=== PATIENT | female | born 1930 | race Caucasian/White ===

== ENCOUNTER 2019-06-03 18:35 | Inpatient (IN) | payer MEDICARE, BC ==
[~2019-06-03] VITALS: Ht 160 cm; Wt 59.9 kg
[~2019-06-03 18:35] MED LIST: ACET325T47 PO; APIX2.5T PO; FAMO20 PO; ISOS30TA6 PO; METO25XL PO; ZOLP10TA7 PO
[2019-06-03] MEDS ORDERED: SODIUM CHLORIDE 0.9% 250 ML IV ONE (18:45)
[2019-06-03 20:25] LABS: MEAN CORPUSCULAR HEMOGLOBIN 29.7 pg (26.0-34.0); MEAN CORPUSCULAR HGB CONC 32.5 G/dL (31.0-37.0); MEAN CORPUSCULAR VOLUME 91 fL (80-100); RED BLOOD CELL COUNT(AUTO) 6.43 MIL/uL (4.00-5.20); RED CELL DISTRIBUTION WIDTH 15.5 % (11.5-14.5)
[2019-06-03 20:27] LABS: CALCIUM, TOTAL 10.4 mg/dL (8.8-10.5); CREATININE 1.52 mg/dL (0.60-1.30); POTASSIUM 5.3 mmol/L (3.5-5.1)
[2019-06-03 20:31] LABS: HEMATOCRIT 58.6 % (36-46); HEMOGLOBIN 19.1 g/dL (12.0-16.0)
[2019-06-03 20:33] LABS: ALBUMIN 4.2 g/dL (3.4-5.0); BILIRUBIN,TOTAL 1.3 mg/dL (0.1-1.0); MAGNESIUM 1.4 mg/dL (1.80-2.40); TOTAL PROTEIN, SERUM 8.1 g/dL (6.4-8.2)
[2019-06-03 20:35] LABS: LACTIC ACID 1.1 mmol/L (0.4-2.0)
[2019-06-03] MEDS ORDERED: SODIUM CHLORIDE 0.9% 1,000 ML IV ONE ×2 (20:45→21:45)
[2019-06-03 20:47] LABS: TROPONIN I < 0.02 ng/mL (0.00-0.05)
[2019-06-03 20:48] LABS: AMMONIA 13 umol/L (11-32)
[2019-06-03 20:50] LABS: INFLUENZA TYPE A NEGATIVE FOR TYPE A (NEGATIVE); INFLUENZA TYPE B NEGATIVE FOR TYPE B (NEGATIVE)
[2019-06-03 20:59] LABS: PLATELET COUNT (AUTO) 402 K/uL (150-450); PLATELET MORPHOLOGY COMMENT GIANT PLTS PRESENT
[2019-06-03 21:00] LABS: BAND NEUTROPHILS % (MANUAL) 0 % (0-5)
[2019-06-03 21:01] LABS: BASOPHILS % (MANUAL) 1 % (0-2); EOSINOPHILS % (MANUAL) 1 % (1-6); LYMPHOCYTES % (MANUAL) 16 % (22-44); MONOCYTES % (MANUAL) 20 % (2-9); REACTIVE LYMPHOCYTES 3 % (0-0); SEGMENTED NEUTROPHILS % 59 % (40-70)
[2019-06-03] MEDS ORDERED: MAGNESIUM SULFATE 2 GM/WATER 50 ML IV ONE (21:15)
[2019-06-03] MEDS ORDERED: ACETAMINOPHEN 325 MG TABLET PO PRN (21:45)
[2019-06-03 21:52] LABS: APPEARANCE,URINE CLOUDY (CLEAR); BILIRUBIN,URINE NEGATIVE (NEGATIVE); GLUCOSE, URINE (UA) NEGATIVE (NEGATIVE); KETONES,URINE NEGATIVE (NEGATIVE); LEUKOCYTE ESTERASE ,URINE LARGE (NEGATIVE); NITRATE,URINE POSITIVE (NEGATIVE); OCCULT BLOOD,URINE TRACE (NEGATIVE); PROTEIN,URINE TRACE (NEGATIVE)
[2019-06-03 22:04] LABS: BACTERIA,URINE Many /HPF (None Seen); RBC,URINE 0-2 /HPF (0-2); WBC,URINE 51-100 /HPF (0-5)
[2019-06-03] MEDS: CefTRIAXone 1 GM/DEXTROSE 50 ML IV SCH (23:16)
[2019-06-03] MEDS: AZITHROMYCIN 500 MG/NS 250 ML IV SCH (23:43)
[2019-06-04 04:51] VITALS: BP 117/70
[2019-06-04 09:00] VITALS: BP 110/68
[2019-06-04] MEDS: APIXABAN 2.5 MG TABLET PO SCH ×2 (09:21→21:21)
[2019-06-04] MEDS: DOCUSATE SODIUM 100 MG CAPSULE PO SCH ×2 (09:21→21:21)
[2019-06-04] MEDS: ATORVASTATIN CALCIUM 20 MG TABLET PO SCH (09:22)
[2019-06-04 12:00] VITALS: BP 130/64
[2019-06-04 16:00] VITALS: BP 124/68
[2019-06-04] MEDS: CefTRIAXone 1 GM/DEXTROSE 50 ML IV SCH (21:21)
[2019-06-04 21:35] VITALS: BP 109/73
[2019-06-04] MEDS: AZITHROMYCIN 500 MG/NS 250 ML IV SCH (23:13)
[2019-06-04] MEDS ORDERED: MAGNESIUM OXIDE 400 MG TABLET PO ONE (23:15)
[2019-06-04 23:26] VITALS: BP 118/64
[2019-06-05 05:42] VITALS: BP 144/81
[2019-06-05 08:00] VITALS: BP 130/71
[2019-06-05] MEDS: DOCUSATE SODIUM 100 MG CAPSULE PO SCH ×2 (10:03→20:56)
[2019-06-05] MEDS: APIXABAN 2.5 MG TABLET PO SCH ×2 (10:04→20:55)
[2019-06-05] MEDS: ATORVASTATIN CALCIUM 20 MG TABLET PO SCH (10:05)
[2019-06-05] MEDS ORDERED: SODIUM CHLORIDE 0.9% 1,000 ML ONE (10:16)
[2019-06-05 12:00] VITALS: BP 140/80
[2019-06-05 12:13] LABS: HEMATOCRIT 53.9 % (36-46); MEAN CORPUSCULAR HGB CONC 31.6 G/dL (31.0-37.0); MEAN CORPUSCULAR VOLUME 92 fL (80-100); PLATELET COUNT (AUTO) 341 K/uL (150-450); RED BLOOD CELL COUNT(AUTO) 5.87 MIL/uL (4.00-5.20); RED CELL DISTRIBUTION WIDTH 15.2 % (11.5-14.5)
[2019-06-05 12:28] LABS: CALCIUM, TOTAL 8.9 mg/dL (8.8-10.5); CREATININE 1.54 mg/dL (0.60-1.30); MAGNESIUM 1.3 mg/dL (1.80-2.40); POTASSIUM 4.9 mmol/L (3.5-5.1)
[2019-06-05 13:18] LABS: BAND NEUTROPHILS % (MANUAL) 1 % (0-5); EOSINOPHILS % (MANUAL) 1 % (1-6); LYMPHOCYTES % (MANUAL) 26 % (22-44); MONOCYTES % (MANUAL) 16 % (2-9); SEGMENTED NEUTROPHILS % 56 % (40-70)
[2019-06-05] MEDS ORDERED: MAGNESIUM OXIDE 400 MG TABLET PO PRN (13:30)
[2019-06-05] MEDS ORDERED: MAGNESIUM SULFATE 4 GM/WATER 100 ML IV PRN (13:30)
[2019-06-05] MEDS ORDERED: MAGNESIUM SULFATE 2 GM/WATER 50 ML IV PRN (13:30)
[2019-06-05 13:50] LABS: ALBUMIN 3.4 g/dL (3.4-5.0)
[2019-06-05 16:00] VITALS: BP 128/68
[2019-06-05 20:00] VITALS: BP 137/77
[2019-06-05] MEDS: CefTRIAXone 1 GM/DEXTROSE 50 ML IV SCH (22:00)
[2019-06-05] MEDS: AZITHROMYCIN 500 MG/NS 250 ML IV SCH (23:32)
[2019-06-06 00:44] VITALS: BP 125/73
[2019-06-06 04:01] VITALS: BP 133/76
[2019-06-06 07:28] VITALS: BP 116/71
[2019-06-06] MEDS: ATORVASTATIN CALCIUM 20 MG TABLET PO SCH (09:05)
[2019-06-06] MEDS: DOCUSATE SODIUM 100 MG CAPSULE PO SCH ×2 (09:05→20:31)
[2019-06-06] MEDS: APIXABAN 2.5 MG TABLET PO SCH ×2 (09:05→20:31)
[2019-06-06 11:42] VITALS: BP 122/74
[2019-06-06 15:22] VITALS: BP 128/66
[2019-06-06 21:30] VITALS: BP 143/68
[2019-06-06] MEDS: CefTRIAXone 1 GM/DEXTROSE 50 ML IV SCH (21:57)
[2019-06-06] MEDS: AZITHROMYCIN 500 MG/NS 250 ML IV SCH (23:03)
[2019-06-07 01:13] VITALS: BP 121/66
[2019-06-07 05:26] VITALS: BP 131/63
[2019-06-07 07:48] VITALS: BP 128/66
[2019-06-07] MEDS: APIXABAN 2.5 MG TABLET PO SCH ×2 (08:50→21:16)
[2019-06-07] MEDS: DOCUSATE SODIUM 100 MG CAPSULE PO SCH ×2 (08:50→21:16)
[2019-06-07] MEDS: ATORVASTATIN CALCIUM 20 MG TABLET PO SCH (08:50)
[2019-06-07 11:09] VITALS: BP 112/64
[2019-06-07 18:10] VITALS: BP 155/70
[2019-06-07 19:45] VITALS: BP 141/74
[2019-06-07] MEDS: CefTRIAXone 1 GM/DEXTROSE 50 ML IV SCH (22:51)
[2019-06-07] MEDS ORDERED: SODIUM CHLORIDE 0.9% 500 ML IV ONE (22:59)
[2019-06-08 00:59] VITALS: BP 126/55
[2019-06-08 08:02] VITALS: BP 140/82
[2019-06-08] MEDS: DOCUSATE SODIUM 100 MG CAPSULE PO SCH ×2 (09:13→20:44)
[2019-06-08] MEDS: APIXABAN 2.5 MG TABLET PO SCH ×2 (09:13→20:44)
[2019-06-08] MEDS: ATORVASTATIN CALCIUM 20 MG TABLET PO SCH (09:14)
[2019-06-08 10:38] LABS: BASOPHILS % (AUTO) 1.1 % (0.0-2.0); EOSINOPHILS % (AUTO) 1.7 % (1.0-6.0); HEMOGLOBIN 16.8 g/dL (12.0-16.0); LYMPHOCYTES # (AUTO) 2.8 K/uL (1.0-4.8); LYMPHOCYTES % (AUTO) 20.2 % (22.0-44.0); MEAN CORPUSCULAR HEMOGLOBIN 29.7 pg (26.0-34.0); MEAN CORPUSCULAR HGB CONC 32.3 G/dL (31.0-37.0); MEAN CORPUSCULAR VOLUME 92 fL (80-100); MONOCYTES # (AUTO) 3.6 K/uL (0.1-1.0); MONOCYTES % (AUTO) 25.6 % (2.0-9.0); NEUTROPHILS # (AUTO) 7.2 K/uL (1.8-7.7); NEUTROPHILS % (AUTO) 51.4 % (40.0-70.0); RED BLOOD CELL COUNT(AUTO) 5.67 MIL/uL (4.00-5.20); RED CELL DISTRIBUTION WIDTH 14.8 % (11.5-14.5)
[2019-06-08 10:45] LABS: CALCIUM, TOTAL 9.8 mg/dL (8.8-10.5); CREATININE 1.08 mg/dL (0.60-1.30); POTASSIUM 4.7 mmol/L (3.5-5.1)
[2019-06-08 11:36] LABS: PLATELET COUNT (AUTO) 320 K/uL (150-450)
[2019-06-08 16:11] VITALS: BP 141/95
[2019-06-08 19:38] VITALS: BP 159/92
[2019-06-08] MEDS: CefTRIAXone 1 GM/DEXTROSE 50 ML IV SCH (20:44)
[2019-06-08] MEDS ORDERED: SODIUM CHLORIDE 0.9% 500 ML IV ONE (20:55)
[2019-06-08 23:10] VITALS: BP 152/75
[2019-06-09 05:07] VITALS: BP 135/102
[2019-06-09 05:36] VITALS: BP 132/73
[2019-06-09 08:31] VITALS: BP 137/88
[2019-06-09] MEDS: DOCUSATE SODIUM 100 MG CAPSULE PO SCH ×2 (08:52→21:00)
[2019-06-09] MEDS: ATORVASTATIN CALCIUM 20 MG TABLET PO SCH (08:52)
[2019-06-09] MEDS: APIXABAN 2.5 MG TABLET PO SCH ×2 (08:52→21:00)
[2019-06-09 11:32] VITALS: BP 134/85
[2019-06-09] MEDS: DEXTROSE 5%-0.45% SODIUM CHL 1,000 ML IV SCH (14:36)
[2019-06-09 17:30] VITALS: BP 128/80
[2019-06-09] MEDS: CefTRIAXone 1 GM/DEXTROSE 50 ML IV SCH (21:19)
[2019-06-09 21:30] VITALS: BP 144/71
[2019-06-10 05:38] VITALS: BP 118/70
[2019-06-10 08:12] LABS: BASOPHILS % (AUTO) 0.6 % (0.0-2.0); EOSINOPHILS % (AUTO) 0.2 % (1.0-6.0); HEMATOCRIT 53.9 % (36-46); HEMOGLOBIN 17.2 g/dL (12.0-16.0); LYMPHOCYTES # (AUTO) 3.3 K/uL (1.0-4.8); LYMPHOCYTES % (AUTO) 12.6 % (22.0-44.0); MEAN CORPUSCULAR HEMOGLOBIN 29.1 pg (26.0-34.0); MEAN CORPUSCULAR HGB CONC 31.8 G/dL (31.0-37.0); MEAN CORPUSCULAR VOLUME 91 fL (80-100); MONOCYTES % (AUTO) 34.9 % (2.0-9.0); NEUTROPHILS # (AUTO) 13.4 K/uL (1.8-7.7); NEUTROPHILS % (AUTO) 51.7 % (40.0-70.0); PLATELET COUNT (AUTO) 351 K/uL (150-450); RED CELL DISTRIBUTION WIDTH 15.3 % (11.5-14.5)
[2019-06-10 08:28] LABS: ALBUMIN 3.1 g/dL (3.4-5.0); BILIRUBIN,TOTAL 1.6 mg/dL (0.1-1.0); CALCIUM, TOTAL 9.2 mg/dL (8.8-10.5); CREATININE 1.4 mg/dL (0.60-1.30); POTASSIUM 4.4 mmol/L (3.5-5.1); TOTAL PROTEIN, SERUM 6.9 g/dL (6.4-8.2)
[2019-06-10] MEDS: ATORVASTATIN CALCIUM 20 MG TABLET PO SCH (09:00)
[2019-06-10] MEDS: DOCUSATE SODIUM 100 MG CAPSULE PO SCH (09:00)
[2019-06-10] MEDS: APIXABAN 2.5 MG TABLET PO SCH (09:00)
[2019-06-10] MEDS ORDERED: HEPARIN SODIUM,PORCINE 5,000 UNITS/ML VIAL SQ SCH (09:30)
[2019-06-10] MEDS: DEXTROSE 5%-0.45% SODIUM CHL 1,000 ML IV SCH (13:03)
[2019-06-10 15:22] VITALS: BP 130/76
[2019-06-10] MEDS: CefTRIAXone 1 GM/DEXTROSE 50 ML IV SCH (16:29)
== END 2019-06-10 18:30 | disposition home or self-care (01) | DRG 70 ==
LOC: EMS 18:36 → 5S 22:39 → 6N 06-07 12:37 → 4E 06-08 16:07
PROVIDERS: ADMIT Internal Medicine; ATTEND Internal Medicine
DX: G93.41 Metabolic encephalopathy (principal); E43 Unspecified severe protein-calorie malnutrition; N39.0 Urinary tract infection, site not specified; N17.9 Acute kidney failure, unspecified; I48.20 Chronic atrial fibrillation, unspecified; R78.81 Bacteremia; R65.10 Systemic inflammatory response syndrome (SIRS) of non-infectious origin without acute organ dysfunction; B96.20 Unspecified Escherichia coli [E. coli] as the cause of diseases classified elsewhere; I69.919 Unspecified symptoms and signs involving cognitive functions following unspecified cerebrovascular disease; F01.50 Vascular dementia, unspecified severity, without behavioral disturbance, psychotic disturbance, mood disturbance, and anxiety; Z79.01 Long term (current) use of anticoagulants; R62.7 Adult failure to thrive; Z68.20 Body mass index [BMI] 20.0-20.9, adult; E83.42 Hypomagnesemia; E86.0 Dehydration; G30.9 Alzheimer's disease, unspecified; I10 Essential (primary) hypertension; I48.91 Unspecified atrial fibrillation; R09.02 Hypoxemia
CPT/HCPCS: 51701; 70450; 83605; 83735; 87040; 87086; 87205; 87635; 87804; 92610; 93005; 99291; G0378; J0456; J0696; J1644; J3475; J7030; J7040